=== PATIENT | male | born 1990 | race Caucasian/White ===

== ENCOUNTER → 2021-11-11 | Outpatient (REF) | payer OTHER ==
[2021-11-11 09:58] LABS: SEMEN APPEARANCE OPAQUE (OPAQUE); SEMEN VISCOSITY LIQUID (LIQUID)
[2021-11-11 09:59] LABS: WBC CONCENTRATION <=1 M/ml (<=1 M/ml)
== END ==
LOC: M LAB REF 09:46
PROVIDERS: ATTEND Physician Assistant
DX: Z31.41 Encounter for fertility testing (principal)

== ENCOUNTER → 2021-11-16 | Outpatient (REF) | payer OTHER ==
[2021-11-16 09:25] LABS: SEMEN APPEARANCE OPAQUE (OPAQUE); SEMEN VISCOSITY LIQUID (LIQUID); SEMEN VOLUME 2.3 ml (2.0-5.0); SEMEN pH 8.5 (7.0-8.0)
[2021-11-16 09:26] LABS: SPERM CONCENTRATION 13.9 M/ml (>=15.0); WBC CONCENTRATION >1 M/ml (<=1 M/ml)
== END ==
LOC: M LAB REF 09:16
PROVIDERS: ATTEND Physician Assistant
DX: N46.9 Male infertility, unspecified (principal)

== ENCOUNTER 2022-04-07 17:32 | Emergency (ER) | payer OTHER ==
[~2022-04-07] VITALS: Ht 182.9 cm; Wt 95.5 kg
[2022-04-07] MEDS ORDERED: diphenhydrAMINE 50MG/ML VIAL (J1200) IV STA (20:24)
[2022-04-07] MEDS ORDERED: FAMOTIDINE 20MG/2ML VIAL IVP ONE (20:25)
[2022-04-07] MEDS ORDERED: methylPREDNISolone 125MG 2ML VIAL IV ONE (20:25)
[2022-04-07 20:55] LABS: BASO % 0.3 % (0.0-1.0); EOS # 0.1 10^3/uL (0.0-0.5); EOS % 0.8 % (0.0-3.0); HEMATOCRIT 47.5 % (42.0-52.0); HEMOGLOBIN 15.9 g/dl (13.5-17.5); LYMPH # 3.2 10^3/uL (1.5-5.0); LYMPH % 22.3 % (24.0-44.0); MEAN CORPUSCULAR HGB CONC 33.5 g/dl (32.0-36.5); MEAN CORPUSCULAR VOLUME 86.7 fl (80.0-96.0); MONO % 6.7 % (2.0-8.0); NEUTROPHILS # 10.1 10^3/uL (1.5-8.5); NEUTROPHILS % 69.6 % (36.0-66.0); PLATELET COUNT, AUTOMATED 342 10^3/uL (150-450); RED BLOOD COUNT 5.48 10^6/uL (4.30-6.10); WHITE BLOOD COUNT 14.5 10^3/uL (4.0-10.0)
[2022-04-07 21:54] LABS: ERYTHROCYTE SEDIMENTATION RATE 1 mm/hr (0-15)
[2022-04-07] MEDS ORDERED: PRED20TA PO (22:27)
[2022-04-07 22:36] VITALS: BP 128/71
[2022-04-08] MEDS ORDERED: EPIP0.3I2 IM (13:47)
== END 2022-04-07 22:52 | disposition home or self-care (01) ==
LOC: M ED 17:32
DX: L50.9 Urticaria, unspecified (principal)
CPT/HCPCS: 36415; 80047; 85025; 85652; 86140; 96374; 96375; 99284; J1200; J2930

== ENCOUNTER 2022-04-08 09:20 | Emergency (ER) | payer OTHER ==
[~2022-04-08] VITALS: Ht 182.9 cm; Wt 96.6 kg
[~2022-04-08 09:20] MED LIST: PRED20TA PO
[2022-04-08] MEDS ORDERED: methylPREDNISolone 125MG 2ML VIAL IV ONE (10:45)
[2022-04-08] MEDS ORDERED: diphenhydrAMINE 50MG/ML VIAL (J1200) IV ONE (10:45)
[2022-04-08] MEDS ORDERED: FAMOTIDINE 20MG/2ML VIAL IVP ONE (10:45)
[2022-04-08] MEDS ORDERED: EPIP0.3I2 IM (13:47)
[2022-04-08 14:08] VITALS: BP 123/62
== END 2022-04-08 14:10 | disposition home or self-care (01) ==
LOC: M ED 09:20
DX: L50.9 Urticaria, unspecified (principal); T78.40XA Allergy, unspecified, initial encounter
CPT/HCPCS: 36415; 71046; 96374; 96375; 99284; J1200; J2930